=== PATIENT | male | born 1980 | race Caucasian/White ===

== ENCOUNTER 2017-05-12 10:36 | Emergency (ER) | payer SELFPAY ==
[~2017-05-12] VITALS: Ht 185.4 cm; Wt 90.7 kg
[2017-05-12 11:03] VITALS: BP 141/68
== END 2017-05-12 11:38 | disposition home or self-care (01) ==
LOC: ER 10:36
DX: J01.10 Acute frontal sinusitis, unspecified (principal); H66.91 Otitis media, unspecified, right ear